=== PATIENT | male | born 1955 | race American Indian/Alaskan Native ===

== ENCOUNTER 2016-06-22 17:26 | Emergency (ER) | payer MEDICAID, OTHER ==
[2016-06-22 17:53] VITALS: BP 162/94; PULSE 60; RESP 18; TEMP 98.2; O2SAT 100
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
== END 2016-06-22 18:58 | disposition home or self-care (01) ==
LOC: H.ER 17:26
DX: R22.31 Localized swelling, mass and lump, right upper limb (principal)

== ENCOUNTER 2016-08-28 12:08 | Emergency (ER) | payer MEDICAID ==
[2016-08-28 12:15] VITALS: BP 149/100; PULSE 73; RESP 18; TEMP 97.7; O2SAT 100
[2016-08-28 12:17] VITALS: BMI 20.6
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
== END 2016-08-28 14:19 | disposition home or self-care (01) ==
LOC: H.ER 12:08
DX: M54.9 Dorsalgia, unspecified (principal); G89.29 Other chronic pain

== ENCOUNTER 2016-09-28 02:50 | Emergency (ER) | payer MEDICAID ==
[2016-09-28 02:56] VITALS: BMI 22.9
[2016-09-28 02:58] VITALS: BP 140/89; PULSE 76; RESP 16; TEMP 99; O2SAT 98
[2016-09-28] MEDS ORDERED: TDAP Vaccine 0.5 mL Syr IM ONE (03:12)
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
[2016-09-28 03:30] LABS: BASO % 0.6 % (0.0-2.0); EOS # 0.1 K/uL (0.0-0.7); EOS % 1.7 % (0.0-4.0); HEMOGLOBIN 13.6 g/dL (12.0-18.0); LYMPH # 2.1 K/uL (1.0-4.3); LYMPH % 43.7 % (20.0-40.0); MEAN CELL VOLUME 93.7 fl (80.0-94.0); MEAN CORPUSCULAR HEMOGLOBIN 31.4 pg (27.0-31.0); MEAN CORPUSCULAR HGB CONC 33.6 g/dL (33.0-37.0); MEAN PLATELET VOLUME 6.8 fl (7.2-11.7); MONO # 0.4 K/uL (0.0-0.8); MONO % 8.7 % (0.0-10.0); NEUT # 2.1 K/uL (1.8-7.0); NEUT % 45.3 % (50.0-75.0); NRBC % 0.1 % (0.0-0.0); RBC 4.34 Mil/uL (4.40-5.90); RED CELL DISTRIBUTION WIDTH 13.2 % (11.5-14.5); WHITE BLOOD COUNT 4.7 K/uL (4.8-10.8)
[2016-09-28 03:41] LABS: ALB/GLOB RATIO 1.4 (1.0-2.1); ALBUMIN 4.2 g/dL (3.5-5.0); ALT/SGPT 40 U/L (21-72); AST/SGOT 30 U/L (17-59); BLOOD UREA NITROGEN 13 mg/dl (9-20); GFR AFRICAN-AMERICAN > 60; GFR NON-AFRICAN AMERICAN > 60
--- NOTE | 2016-09-28 04:28 | CT ---
EXAM: CT Head Without Intravenous Contrast CLINICAL HISTORY: 61 years old, male; Injury or trauma; Fall; Initial encounter; Blunt trauma (contusions or hematomas); Additional info: ETOH, head injury TECHNIQUE: Axial computed tomography images of the head/brain without intravenous contrast. This CT exam was performed using one or more of the following dose reduction techniques: automated exposure control, adjustment of the mA and/or kV according to patient size, and/or use of iterative reconstruction technique. Coronal and sagittal reformatted images were created and reviewed. COMPARISON: No relevant prior studies available. FINDINGS: Brain: Mild atrophy. No intracranial hemorrhage. No mass. No edema. Ventricles: No hydrocephalus. Bones/joints: No calvarial fracture. Mastoid air cells: No mastoid effusion. IMPRESSION: 1. No intracranial hemorrhage. 2. See facial bone CT report for additional details. 3. Incidental/non-acute findings are described above.
--- NOTE | 2016-09-28 04:30 | CT ---
EXAM: CT Maxillofacial Without Intravenous Contrast CLINICAL HISTORY: 61 years old, male; Injury or trauma; Fall; Initial encounter; Blunt trauma (contusions or hematomas); Orbit/periorbital; Left; Additional info: Left periorbital injury TECHNIQUE: Axial computed tomography images of the face without intravenous contrast. This CT exam was performed using one or more of the following dose reduction techniques: automated exposure control, adjustment of the mA and/or kV according to patient size, and/or use of iterative reconstruction technique. Coronal and sagittal reformatted images were created and reviewed. COMPARISON: No relevant prior studies available. FINDINGS: Limitations: Motion artifact - mild. Bones/joints: Chronic deformity medial wall of LEFT orbit. No acute fracture. Soft tissues: Mild facial soft tissue swelling. Orbits: Unremarkable as visualized. Sinuses: Scattered minimal mucosal thickening. No air-fluid levels. Dental: Dental caries. IMPRESSION: 1. No fracture. 2. Incidental/non-acute findings are described above.
== END 2016-09-28 05:15 | disposition home or self-care (01) ==
LOC: H.ER 02:50
DX: S01.112A Laceration without foreign body of left eyelid and periocular area, initial encounter (principal); S09.90XA Unspecified injury of head, initial encounter; Y04.0XXA Assault by unarmed brawl or fight, initial encounter; Y92.89 Other specified places as the place of occurrence of the external cause; F10.129 Alcohol abuse with intoxication, unspecified

== ENCOUNTER 2017-05-10 15:33 | Emergency (ER) | payer MEDICAID ==
[2017-05-10 15:34] VITALS: BMI 22.9
[2017-05-10 16:00] VITALS: BP 132/88; PULSE 96; RESP 16; TEMP 98.1; O2SAT 96
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
== END 2017-05-10 17:30 | disposition home or self-care (01) ==
LOC: H.ER 15:33
DX: M54.9 Dorsalgia, unspecified (principal); G89.29 Other chronic pain
CPT/HCPCS: 96372; 99282; J1885

== ENCOUNTER 2017-12-20 13:45 | Emergency (ER) | payer SELFPAY ==
[2017-12-20 13:45] VITALS: BMI 22.9
[2017-12-20 14:08] VITALS: BP 129/89; PULSE 76; RESP 16; TEMP 99.7; O2SAT 98
--- NOTE | 2017-12-20 15:34 | ED PDOC ---
History of Present Illness History of Present Illness: 62 year old male presents to the ED for evaluation of a cough, congestion, sore throat, and chills beginning yesterday. He states he is unsure if he had a fever at any point, and did not take any fever-reducing medications as a result. Patient does admit to self-medicating with his daughter's left over abx this morning. Additionally, this morning he reports waking up with atraumatic left knee pain. Otherwise, denies numbness, tingling, hemoptysis, chest pain, shortness of breath, calf pain, sick contacts, and recent travel. PMD: [facility] HPI: Influenza Time Seen by Provider: 12/20/17 14:55 Chief Complaint: Cough, Cold, Congestion Chief Complaint (Provider): Cough, Cold, Congestion History Per: Patient Exam Limitations: no limitations Onset/Duration Of Symptoms: Days (x1) Past Medical History Reviewed: Historical Data, Nursing Documentation, Vital Signs Vital Signs: Last Vital Signs Temp 99.7 F H 12/20/17 14:05 Pulse 76 12/20/17 14:05 Resp 16 12/20/17 14:05 BP 129/89 12/20/17 14:05 Pulse Ox 98 12/20/17 14:05 - Medical History PMH: Arthritis, Back Problems Denies: HTN - Family History Family History: States: Unknown Family Hx - Social History Current smoker - smoking cessation education provided: No Alcohol: Social Drugs: Denies - Home Medications Home Medications: Ambulatory Orders Medication Instructions Recorded Oxycodone HCl/Acetaminophen 1 tab PO Q6 PRN #12 tab 05/05/15 [Percocet 325 mg-5 mg] Oxycodone HCl/Acetaminophen 1 tab PO Q8H PRN #9 tab 05/11/15 [Percocet 325 mg-5 mg] RX: Naproxen [Naprosyn] 500 mg PO BID PRN #20 tablet 05/11/15 Cephalexin [cephalexin] 500 mg PO BID #20 cap 06/22/16 Cyclobenzaprine [Cyclobenzaprine 10 mg PO Q8H #20 tab 08/28/16 HCl] Acetaminophen [Acetaminophen 8 650 mg PO TID PRN #20 tablet.er 05/10/17 Hour] Meloxicam [Mobic] 15 mg PO DAILY PRN #14 tab 05/10/17 Fluticasone Propionate [Flonase] 2 spr NS DAILY PRN #1 bottle 12/20/17 Oseltamivir [Tamiflu] 75 mg PO BID #9 cap 12/20/17 RX: Promethazine DM [Phenergan DM 5 - 10 ml PO Q8 PRN #120 ml 12/20/17 Syrup] - Allergies Allergies/Adverse Reactions: Allergies Allergy/AdvReac Type Severity Reaction Status Date / Time No Known Allergies Allergy Verified 12/20/17 14:05 Review of Systems ROS Statement: Except As Marked, All Systems Reviewed And Found Negative Constitutional: Positive for: Chills ENT: Positive for: Nose Congestion, Throat Pain Cardiovascular: Negative for: Chest Pain Respiratory: Positive for: Cough. Negative for: Shortness of Breath, Hemoptysis Musculoskeletal: Positive for: Leg Pain (left knee pain). Negative for: Other (calf pain) Neurological: Negative for: Numbness (or tingling) Physical Exam - Reviewed Nursing Documentation Reviewed: Yes Vital Signs Reviewed: Yes - Physical Exam Appears: Positive for: No Acute Distress Head Exam: Positive for: ATRAUMATIC, NORMOCEPHALIC Skin: Positive for: Normal Color. Negative for: Rash Eye Exam: Positive for: Normal appearance, EOMI, PERRL ENT: Positive for: Normal ENT Inspection. Negative for: Pharyngeal Erythema, Tonsillar Exudate, Tonsillar Swelling Cardiovascular/Chest: Positive for: Regular Rate, Rhythm Respiratory: Positive for: Normal Breath Sounds. Negative for: Accessory Muscle Use, Respiratory Distress Pulses-Dorsalis Pedis (L): 2+ Pulses-Dorsalis Pedis (R): 2+ Extremity: Positive for: Other (left knee positive crepitus, no erythema or warmth). Negative for: Tenderness (left knee), Swelling (left knee) Neurologic/Psych: Positive for: Alert, Oriented (x3) Medical Decision Making Medical Decision Making: Time: 1509 Initial Impression: crepitus of left knee, r/o flu Initial Plan: --CXR (PA&LAT) --Left knee XR --Motrin 600mg PO --Influenza --Rapid Strep 1513 Flu test negative. 1539 Knee XR FINDINGS: BONES: No acute fracture. 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 JOINTS: Mild tricompartmental narrowing. JOINT EFFUSION: None. OTHER FINDINGS: None. IMPRESSION: No demonstrated acute fracture dislocation. Mild degenerative changes. CXR: NAD as per radiology report. Tamiflu PO ordered. Scribe Attestation: Documented by Blanche Hernandez, acting as a scribe for Ab Wheeler PA-C Provider Scribe Attestation: All medical record entries made by the Scribe were at my direction and personally dictated by me. I have reviewed the chart and agree that the record accurately reflects my personal performance of the history, physical exam, medical decision making, and the department course for this patient. I have also personally directed, reviewed, and agree with the discharge instructions and disposition. - ECG O2 Sat by Pulse Oximetry: 98 (RA) Pulse Ox Interpretation: Normal Disposition - Clinical Impression Clinical Impression: Viral syndrome, Upper respiratory infection - Patient ED Disposition Is Patient to be Admitted: No - Disposition Referrals: Ayana Shoemaker MD [Staff Provider] - Disposition: Routine/Home Disposition Time: 17:20 Condition: STABLE Additional Instructions: DEISY PUTNAM, thank you for letting us take care of you today. Your provider was Consuelo Moser MD and you were treated for COLD-LIKE SYMPTOMS,LT KNEE PAIN. The emergency medical care you received today was directed at your acute symptoms. If you were prescribed any medication, please fill it and take as directed. It may take several days for your symptoms to resolve. Return to the Emergency Department if your symptoms worsen, do not improve, or if you have any other problems. Please contact your doctor or call one of the physicians/clinics you have been referred to that are listed on the Patient Visit Information form that is included in your discharge packet. Bring any paperwork you were given at discharge with you along with any medications you are taking to your follow up visit. Our treatment cannot replace ongoing medical care by a primary care provider outside of the emergency department. Thank you for allowing the [facility] team to be part of your care today. If you had an X-Ray or CT scan: A Radiologist will review the ED reading if any change in treatment is needed we will contact you. If you had a blood, urine, or wound culture: It will take several days for the results, if any change in treatment is needed we will contact you. If you had an STI test: It will take 48 hours for the results. Please call after 1 week if you have not heard back. Prescriptions: Fluticasone Propionate [Flonase] 2 spr NS DAILY PRN #1 bottle PRN Reason: Allergy Symptoms Oseltamivir [Tamiflu] 75 mg PO BID #9 cap RX: Promethazine DM [Phenergan DM Syrup] 5 - 10 ml PO Q8 PRN #120 ml PRN Reason: Cough Instructions: Viral Upper Respiratory Infection, Adult (DC) Forms: [employer] (E[place]ian)
--- NOTE | 2017-12-20 15:40 | RAD ---
Date of service: 12/20/2017 PROCEDURE: Left Knee Radiographs. HISTORY: Pain. COMPARISON: Left knee radiographs dated 12/24/2014. FINDINGS: BONES: No acute fracture. 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 JOINTS: Mild tricompartmental narrowing. JOINT EFFUSION: None. OTHER FINDINGS: None. IMPRESSION: No demonstrated acute fracture dislocation. Mild degenerative changes.
--- NOTE | 2017-12-20 15:53 | RAD ---
Date of service: 12/20/2017 HISTORY: cough COMPARISON: Chest radiograph dated 05/11/2015. TECHNIQUE: Chest PA and lateral FINDINGS: LUNGS: No active pulmonary disease. PLEURA: No significant pleural effusion identified. No pneumothorax apparent. CARDIOVASCULAR: Atherosclerotic aortic calcifications. Cardiomediastinal silhouette within normal limits. OSSEOUS STRUCTURES: Changed. VISUALIZED UPPER ABDOMEN: Normal. OTHER FINDINGS: None. IMPRESSION: No active disease.
== END 2017-12-20 17:27 | disposition home or self-care (01) ==
LOC: H.ER 13:45
DX: J06.9 Acute upper respiratory infection, unspecified (principal); B34.9 Viral infection, unspecified